=== PATIENT | female | born 1990 | race African-American/Black ===

== ENCOUNTER 2017-05-05 12:28 | Inpatient (IN) ==
[2017-05-05] MEDS ORDERED: ONDANSETRON 4 MG/2 ML VIAL IV PRN ×2 (13:15→22:42)
[2017-05-05] MEDS ORDERED: MEPERIDINE 50 MG/1 ML VIAL IV PRN (13:15)
[2017-05-05] MEDS ORDERED: BUTORPHANOL 2 MG/ML VIAL IV PRN (13:15)
[2017-05-05] MEDS ORDERED: FAMOTIDINE 20 MG/2 ML VIAL IV ONE (13:20)
[2017-05-05] MEDS ORDERED: ePHEDrine 50 MG/ML AMP IV PRN (13:20)
[2017-05-05] MEDS ORDERED: hydrOXYzine HCL 25 MG/1 ML VIAL IM PRN (13:20)
[2017-05-05] MEDS ORDERED: diphenhydrAMINE 50 MG/1 ML VIAL IV PRN ×2 (13:20)
[2017-05-05] MEDS ORDERED: LACTATED RINGERS 1,000 ML IV ONE (13:20)
[2017-05-05] MEDS ORDERED: CITRIC ACID/SODIUM CITRATE 30 ML UDCUP PO ONE (13:20)
[2017-05-05] MEDS ORDERED: PROMETHAZINE 25 MG/1 ML VIAL IM ONE (13:20)
[2017-05-05] MEDS ORDERED: AMPICILLIN INJ 2,000 MG in SODIUM CHLORIDE 0.9% 100 ML IV ONE (13:23)
[2017-05-05 13:24] LABS: Basophils % 0.2 % (0.0-0.8); Eosinophils # 0.2 10*3/uL (0.0-0.87); Eosinophils % 1.3 % (0.00-10.9); Hematocrit 31.4 VOL% (35.7-47.0); Hemoglobin 10.7 GM/DL (12.0-16.0); Immature Granulocytes Absolute 0.24 #; Lymphocytes # 1.4 10*3/uL (1.4-4.0); Lymphocytes % 11.7 % (21.3-54.2); Mean Corpuscular HGB Conc 34.1 GM/DL (32-36); Mean Corpuscular Hemoglobin 33 PG (27-34); Mean Corpuscular Volume 95.7 FL (87-102); Mean Platelet Volume 10.4 FL (9.6-12.0); Monocytes # 0.8 10*3/uL (0.11-0.8); Monocytes % 6.2 % (1.7-12.7); NRBC # 0.02 10*3/uL; Neutrophils # 9.6 10*3/uL (1.4-7.4); Neutrophils % 78.6 % (38.7-73.9); Platelet Count 233 T/CUMM (130-400); Red Blood Count 3.28 MC/CUMM (3.8-5.5); White Blood Count 12.3 T/CUMM (4-12)
[2017-05-05] MEDS ORDERED: fentaNYL 2 MCG/ROPIV 0.2% EPID 150 ML EPIDURAL SCH (13:30)
[2017-05-05] MEDS: LACTATED RINGERS 1,000 ML IV SCH ×2 (13:40→14:46)
[2017-05-05 13:44] LABS: Albumin 2.6 G/DL (3.4-5.0); Bilirubin,Total 0.4 MG/DL (0.2-1.0); Calcium 8.5 MG/DL (8.5-10.1); Osmolality,Calculated 274.4 MOS/KG (273-304); Potassium 3.8 MMOL/L (3.5-5.1)
[2017-05-05] MEDS: OXYTOCIN/LR 20 UNIT/1,000 ML BAG IV SCH ×2 (14:35→21:21)
[2017-05-05 15:01] LABS: Apearance,Urine CLEAR (Clear); Bilirubin,Urine Negative (Negative); Blood, Urine Small mg/dL (Negative); Glucose,Urine (UA) Negative (Negative); Ketones,Urine Negative (Negative); Nitrite,Urine Negative (Negative); Protein,Urine Negative; RBC,Urine <1 /HPF (0-4); Urine Color Straw (Yellow); Urine Specific Gravity 1.002 (1.001-1.035); Urine Urobilinogen < 2.0 EU/DL (0.2-1.0); WBC,Urine <1 /HPF (0-6)
[2017-05-05] MEDS ORDERED: AMPICILLIN INJ 1,000 MG in SODIUM CHLORIDE 0.9% 100 ML IV SCH (17:30)
[2017-05-05] MEDS ORDERED: CARBOPROST TROMETHAMINE 250 MCG/ML AMP IM ONE (20:20)
[2017-05-05] MEDS ORDERED: MAGNESIUM HYDROXIDE SUSP 30 ML UDCUP PO PRN (22:42)
[2017-05-05] MEDS ORDERED: LACTATED RINGERS 1,000 ML IV SCH (22:42)
[2017-05-05] MEDS ORDERED: BISACODYL 10 MG SUPP RECTAL PRN (22:42)
[2017-05-05] MEDS ORDERED: ACETAMINOPHEN 325 MG TABLET PO PRN (22:42)
[2017-05-05] MEDS: IBUPROFEN 800 MG TABLET PO PRN (23:30)
[2017-05-06 06:22] LABS: Basophils % 0.3 % (0.0-0.8); Eosinophils # 0.2 10*3/uL (0.0-0.87); Eosinophils % 1.5 % (0.00-10.9); Hematocrit 26.8 VOL% (35.7-47.0); Hemoglobin 8.8 GM/DL (12.0-16.0); Immature Granulocytes % 1.4 %; Immature Granulocytes Absolute 0.22 #; Lymphocytes # 2.1 10*3/uL (1.4-4.0); Lymphocytes % 13.4 % (21.3-54.2); Mean Corpuscular HGB Conc 32.8 GM/DL (32-36); Mean Corpuscular Hemoglobin 32 PG (27-34); Mean Corpuscular Volume 98.5 FL (87-102); Mean Platelet Volume 10.5 FL (9.6-12.0); Monocytes # 1.3 10*3/uL (0.11-0.8); Monocytes % 8.1 % (1.7-12.7); Neutrophils # 11.7 10*3/uL (1.4-7.4); Neutrophils % 75.3 % (38.7-73.9); Platelet Count 190 T/CUMM (130-400); Red Blood Count 2.72 MC/CUMM (3.8-5.5); Red Cell Distribution Width 12.9 % (9.3-17.3); White Blood Count 15.6 T/CUMM (4-12)
[2017-05-06] MEDS ORDERED: IRON (CARBONYL)/VIT C/B12/FA TABLET PO SCH (09:00)
[2017-05-06] MEDS: DOCUSATE SODIUM 100 MG CAPSULE PO SCH ×2 (10:01→21:40)
[2017-05-06] MEDS: MULTIVITAMIN (PRENATAL) TABLET PO SCH (10:01)
[2017-05-06] MEDS: IBUPROFEN 800 MG TABLET PO PRN (10:01)
[2017-05-06] MEDS: FERROUS SULFATE 325 MG TABLET PO SCH (10:01)
[2017-05-07] MEDS: IBUPROFEN 800 MG TABLET PO PRN (07:33)
[2017-05-07 08:09] VITALS: BP 116/82
[2017-05-07] MEDS: DOCUSATE SODIUM 100 MG CAPSULE PO SCH (08:34)
[2017-05-07] MEDS: FERROUS SULFATE 325 MG TABLET PO SCH (08:34)
[2017-05-07] MEDS: MULTIVITAMIN (PRENATAL) TABLET PO SCH (08:34)
== END 2017-05-07 16:05 | disposition home or self-care (01) | DRG 560 ==
LOC: N.LDOUT 12:28 → N.LD 12:29 → N.OB 22:45
PROVIDERS: ADMIT Obstetrics & Gynecology; ATTEND Obstetrics & Gynecology